=== PATIENT | male | born 1980 | race Caucasian/White ===

== ENCOUNTER 2017-06-20 22:43 | Emergency (ER) | payer SELFPAY, MEDICAID | END 2017-06-20 23:49 | disposition home or self-care (01) | LOC: E/R 22:43 | DX: R51 Headache (principal); I10 Essential (primary) hypertension; R40.2142 Coma scale, eyes open, spontaneous, at arrival to emergency department; R40.2252 Coma scale, best verbal response, oriented, at arrival to emergency department; R40.2362 Coma scale, best motor response, obeys commands, at arrival to emergency department | CPT/HCPCS: 99283 ==